=== PATIENT | female | born 1940 | race Two or more races ===

== ENCOUNTER 2017-09-27 10:42 | Outpatient (CLI) | payer OTHER ==
[~2017-09-27] VITALS: Ht 152.4 cm; Wt 61.2 kg
[~2017-09-27 10:42] MED LIST: BIAXIN500 MG PO; CIPRO500 MG PO; CLARITIN10 MG PO; FLONASE16 G1 NS; GLUCOPHAGE XR500 MG PO; STARLIX60 MG PO; ULTRAM50 MG PO; VERAPAMIL HCL120 M1 PO; ZETIA10 MG PO
[2017-09-27] MEDS ORDERED: DERMOTIC20 ML OTIC (12:28)
== END 2017-09-27 11:00 | disposition home or self-care (01) ==
LOC: OFIC 805 10:42
DX: J31.0 Chronic rhinitis (principal); J01.00 Acute maxillary sinusitis, unspecified; J32.0 Chronic maxillary sinusitis

== ENCOUNTER 2018-03-21 10:35 | Outpatient (CLI) | payer OTHER ==
[~2018-03-21] VITALS: Ht 152.4 cm; Wt 61.2 kg
[~2018-03-21 10:35] MED LIST changes: +DERMOTIC20 ML OTIC
[2018-03-21] MEDS ORDERED: CLARITIN10 MG PO (11:37)
[2018-03-21] MEDS ORDERED: DERMOTIC20 ML OTIC (11:37)
== END 2018-03-21 10:55 | disposition home or self-care (01) ==
LOC: OFIC 805 10:35
DX: J31.0 Chronic rhinitis (principal); H61.23 Impacted cerumen, bilateral; L29.8 Other pruritus

== ENCOUNTER 2018-09-19 10:50 | Outpatient (CLI) | payer OTHER ==
[~2018-09-19] VITALS: Ht 152.4 cm; Wt 61.2 kg
[2018-09-19] MEDS ORDERED: ZANTAC150 M3 PO (13:41)
[2018-09-19] MEDS ORDERED: CLARITIN10 MG PO (13:41)
== END 2018-09-19 11:10 | disposition home or self-care (01) ==
LOC: OFIC 805 10:50
DX: H61.21 Impacted cerumen, right ear (principal); J37.0 Chronic laryngitis; J31.0 Chronic rhinitis; J34.2 Deviated nasal septum; J35.01 Chronic tonsillitis

== ENCOUNTER → 2019-07-19 | Outpatient (CLI) | payer OTHER ==
[~2019-07-19] MED LIST changes: +ZANTAC150 M3 PO
== END | disposition home or self-care (01) ==
LOC: RAD 13:38
DX: M17.11 Unilateral primary osteoarthritis, right knee (principal)

== ENCOUNTER 2019-08-01 12:54 | Outpatient (CLI) | payer OTHER | END 2019-08-01 12:57 | disposition home or self-care (01) | LOC: RAD 12:54 | DX: M54.6 Pain in thoracic spine (principal); M54.5 Low back pain ==

== ENCOUNTER 2019-10-29 12:17 | Outpatient (CLI) | payer OTHER | END 2019-10-30 15:11 | disposition home or self-care (01) | LOC: OFIC 805 12:17 | DX: L30.8 Other specified dermatitis (principal); H61.21 Impacted cerumen, right ear | CPT/HCPCS: 69210; 99213; G0463 ==

== ENCOUNTER 2020-02-04 09:20 | Outpatient (CLI) | payer OTHER ==
[~2020-02-04] VITALS: Ht 152.4 cm; Wt 56.7 kg
== END 2020-02-04 15:22 | disposition home or self-care (01) ==
LOC: OFIC 805 09:20
PROVIDERS: ATTEND Otolaryngology
DX: L30.8 Other specified dermatitis (principal); H93.13 Tinnitus, bilateral; H61.23 Impacted cerumen, bilateral

== ENCOUNTER → 2020-03-03 | Outpatient (CLI) | payer OTHER | END | disposition home or self-care (01) | LOC: OFIC 805 14:30 | PROVIDERS: ATTEND Otolaryngology | DX: H90.3 Sensorineural hearing loss, bilateral (principal); R42 Dizziness and giddiness ==

== ENCOUNTER 2020-10-20 07:46 | Outpatient (CLI) | payer OTHER | END 2020-10-20 08:01 | disposition home or self-care (01) | LOC: RX STUDY 07:46 | PROVIDERS: ATTEND Internal Medicine Gastroenterology | DX: R10.13 Epigastric pain (principal) ==